=== PATIENT | male | born 1955 | race Caucasian/White ===

== ENCOUNTER 2017-03-08 08:30 | Day surgery (SDC) | payer BC ==
[~2017-03-08 08:30] MED LIST: TETRACAINE 0.5% OPHTH 1 DOSE AFFEYE ONE
[2017-03-08] MEDS ORDERED: VIGAMOX 0.5% OPHTH 1 DOSE AFFEYE ONE ×5 (08:35→11:32)
[2017-03-08] MEDS ORDERED: PROLENSA OPHTH 1 DOSE AFFEYE ONE (08:46)
[2017-03-08] MEDS ORDERED: ALPHAGAN-P OPHTH 1 DOSE AFFEYE ONE (08:47)
[2017-03-08] MEDS ORDERED: AK-DILATE 2.5% OPHTH 1 DOSE OP ONE ×3 (08:48→08:50)
[2017-03-08] MEDS ORDERED: CYCLOGYL 1% OPHTH 1 DOSE OP ONE ×3 (08:48→08:50)
[2017-03-08] MEDS ORDERED: MYDRIACIL OPHTH 1 DOSE AFFEYE ONE ×3 (08:48→08:50)
[2017-03-08] MEDS ORDERED: NS 500 ML IV 500 ML IV ONE (08:49)
[2017-03-08] MEDS ORDERED: TETRACAINE 0.5% OPHTH 1 DOSE AFFEYE ONE ×5 (10:00→11:19)
[2017-03-08] MEDS ORDERED: VERSED IVP ONE ×2 (10:31→10:50)
[2017-03-08] MEDS ORDERED: FENTANYL INJ 100 mcg IVP ONE (10:51)
[2017-03-08] MEDS ORDERED: AK-DILATE 10% OPHTH 1 DOSE AFFEYE ONE (10:55)
[2017-03-08] MEDS ORDERED: FENTANYL INJ 100 mcg ONE (11:03)
[2017-03-08] MEDS ORDERED: BETADINE OPHTH SOLN 5% EACHEYE ONE (11:13)
[2017-03-08] MEDS ORDERED: ADRENALINE CHL INJ IJ ONE ×2 (11:13→11:19)
[2017-03-08] MEDS ORDERED: DUOVISC IO ONE ×2 (11:14→11:19)
[2017-03-08] MEDS ORDERED: XYLOCAINE-MPF 1% IJ ONE ×2 (11:14→11:19)
[2017-03-08] MEDS ORDERED: BSS OPHTH (PLAIN) 500 ML with VANCOMYCIN HCL 500 MG VIAL 25 MG, ADRENALINE CHL INJ 1 MG IR ONE ×6 (11:14)
[2017-03-08 12:01] VITALS: BP 122/75
[2017-03-08] MEDS ORDERED: VERSED ONE (15:40)
== END 2017-03-08 11:55 | disposition home or self-care (01) ==
LOC: SURG1 08:30
PROVIDERS: ATTEND Ophthalmology
PROC: 08DJ3ZZ Extraction of Right Lens, Percutaneous Approach (ICD-10-PCS; principal; 2017-03-08 12:00)
PROC: 08RJ3JZ Replacement of Right Lens with Synthetic Substitute, Percutaneous Approach (ICD-10-PCS; principal; 2017-03-08 12:00)
DX: H25.11 Age-related nuclear cataract, right eye (principal); H25.041 Posterior subcapsular polar age-related cataract, right eye; H52.221 Regular astigmatism, right eye
CPT/HCPCS: A4222; A4217; J0170; J2250; J3010; J3370